=== PATIENT | male | born 1995 | race Caucasian/White ===

== ENCOUNTER 2019-12-15 20:12 | Emergency (ER) | payer MEDICAID, SELFPAY ==
[2019-12-15 20:20] VITALS: BP 157/79; PULSE 88; RESP 16; TEMP 36.6; O2SAT 98; BMI 27.3
--- NOTE | 2019-12-15 20:39 | CTR_ITS ---
PROCEDURE INFORMATION: Exam: CT Abdomen And Pelvis With Contrast Exam date and time: 12/15/2019 8:57 PM Age: 24 years old Clinical indication: Nausea and vomiting; Abdominal pain; Prior surgery; Surgery type: Gb, appy, small intestine, RT side colon; Additional info: Abd pain TECHNIQUE: Imaging protocol: Computed tomography of the abdomen and pelvis with intravenous contrast. Total DLP: 999.35 mGy-cm Radiation optimization: All CT scans at this facility use at least one of these dose optimization techniques: automated exposure control; mA and/or kV adjustment per patient size (includes targeted exams where dose is matched to clinical indication); or iterative reconstruction. Contrast material: OMNI 300; Contrast volume: 95 ml; Contrast route: IV; COMPARISON: CT abdomen pelvis w con* [id number] 03/30/2017 2:37 AM FINDINGS: Liver: Normal. No mass. Gallbladder and bile ducts: Status post cholecystectomy. Pancreas: Normal. No ductal dilation. Spleen: Normal. No splenomegaly. Adrenals: Normal. No mass. Kidneys and ureters: Normal. No hydronephrosis. Stomach and bowel: Status post right colectomy. There are mildly dilated fluid-filled loops of small bowel present in the lower abdomen and pelvis, findings could represent ileus although an early or partial small bowel obstruction cannot be excluded. Additionally, some strandy and hazy opacities are seen in the adjacent mesenteric fat and fascia for the suggesting mild inflammatory changes and possible small bowel enteritis. Appendix: Status post appendectomy. Intraperitoneal space: Unremarkable. No free air. No significant fluid collection. Vasculature: Unremarkable. No abdominal aortic aneurysm. Lymph nodes: Unremarkable. No enlarged lymph nodes. Bladder: Unremarkable as visualized. Reproductive: Unremarkable as visualized. Bones/joints: Unremarkable. No acute fracture. Soft tissues: Unremarkable. CT/CT abdomen pelvis w con* [id number] IMPRESSION: Mildly dilated fluid-filled loops of small bowel are seen predominately within the lower abdomen, there are mild inflammatory changes seen in the adjacent mesentery. These findings may represent inflammatory changes and small bowel enteritis although early small bowel obstruction cannot be excluded. Radiation Dose CTDIVOL = (mGy): DLP = 999.35 (mGy-cm)
--- NOTE | 2019-12-15 20:41 | W.ED.ABDPA2 ---
HPI - Abdominal Pain General: Chief Complaint: Abdominal Pain Stated Complaint: abd pain Time Seen by Provider: 12/15/19 20:33 History of Present Illness: HPI narrative: Patient comes in today with complaints of abdominal pain that started 45 minutes after his meal 3 hours ago. Patient states he has a history of a bowel obstruction in the past. Patient does have a previous ruptured colon. Patient has a history of leukemia in the past. Patient has had a ostomy in the past. Patient appears well. Patient appears in moderate to severe pain. Patient did report some nausea and vomiting with his pain. Associated Symptoms: Reports nausea and vomiting Review of Systems General: Reports: 10 or more systems reviewed and unremarkable except in HPI and below GI: Reports: abdominal pain, nausea and vomiting PFSH ED PFSH: Social History Smoking and tobacco status: never smoked Physical Exam Const: COMMON NORMALS: no apparent distress and oriented x3 GENERAL APPEARANCE: cooperative HENMT: COMMON NORMALS: normocephalic, external ears normal, EAC's normal, TM's normal bilaterally and external nose normal HEAD & SCALP: normal to inspection and normocephalic FACE & SINUS: normal facial exam NOSE: external nose normal GENERAL EAR: hearing not grossly impaired EXTERNAL EAR: Yes external ears normal EXTERNAL AUDITORY CANAL: EAC's normal TYMPANIC MEMBRANE: TM's normal bilaterally MOUTH: oral and palatal mucosa normal THROAT: posterior oropharynx normal Eye: COMMON NORMALS: PERRL and EOMs intact bilaterally PUPIL: Yes PERRL Neck/C-Spine: COMMON NORMALS: full ROM and no lymphadenopathy Lymph: LYMPHATIC: no lymphedema noted Chest: COMMONS NORMALS: inspection of chest normal and palpation of chest normal Resp: COMMON NORMALS: normal respiratory effort and clear to auscultation bilaterally AUSCULTATION: clear to auscultation bilaterally Cardio: COMMON NORMALS: regular rate and regular rhythm RATE: regular rate RHYTHM: regular rhythm GI: INSPECTION: Yes other (multiple surgical scars) AUSCULTATION: Yes hypoactive bowel sounds PALPATION: Yes tender (diffuse) : COMMON NORMALS: Yes no CVA tenderness BLADDER/KIDNEY EXAM: Yes no CVA tenderness Back/Pelvis: COMMON NORMALS: no CVA tenderness and thoracic and lumbar spine normal to inspection Extremity: COMMON NORMALS: normal to inspection GENERAL: No edema Neuro: COMMON NORMALS: oriented x3, moves all extremities and no focal motor deficits Psych: COMMON NORMALS: mental status grossly normal and cooperative Skin: COMMON NORMALS: no rashes or lesions noted GENERAL SKIN EXAM: no rashes or lesions noted Course Vital Signs: Vital signs: Vital Signs Temperature 97.8 F 12/15/19 20:20 Pulse Rate 88 12/15/19 20:20 Respiratory Rate 16 12/15/19 21:17 Blood Pressure 157/79 12/15/19 20:20 Pulse Oximetry 98 12/15/19 21:17 MDM - Abdominal Pain MDM Narrative: Medical decision making narrative: Patient comes in today with complaints of midepigastric pain. Patient reports about 45 minutes after eating he had sudden onset of abdominal discomfort. Patient was worried that he may be developing a small bowel obstruction he has had a previous history of similar illness. Exam notes abdomen soft bowel sounds are decreased. Respirations are even lungs are clear to auscultation. Skin is warm and dry. Patient does report diarrhea. Vital signs are normal. Differential diagnosis includes gastroenteritis, gastritis, enteritis, small bowel obstruction. Laboratory values noted no obvious abnormality. CT scan of the abdomen and pelvis noted some bowel wall thickening of the small bowel that suggested a enteritis. Although cannot be ruled out that this is also a early small bowel obstruction. Patient was medicated with morphine and ondansetron and famotidine in the ER along with 1 L of IV fluids. Patient had resolution of symptoms. Reviewed exam and with patient with recommendations for clear liquid diet for the next 24 hours then increase to full liquid diet. Monitoring for worsening nausea vomiting or high fever and return as needed for the symptoms. Patient reported understanding and agreed with plan. Lab Data: Labs: Lab Results 12/15/19 12/15/19 Range/Units 20:55 20:55 WBC 7.2 (4.0-10.0) 10^3/ uL RBC 5.32 H (4.1-5.3) 10^6/u L Hgb 15.1 (11.7-16.6) g/dL Hct 44.3 (42.0-52.0) % MCV 83.3 (80-94) fL MCH 28.4 (28.0-34.0) pg MCHC 34.1 (30.0-36.0) g/dL RDW 13.1 (12.1-15.1) % Plt Count 205 (130-400) 10^3/c mm MPV 8.8 (7.4-10.4) fL Neut % (Auto) 60.1 % Lymph % (Auto) 30.3 % [place] % (Auto) 7.8 % Eos % (Auto) 1.1 % Baso % (Auto) 0.3 % Neut # (Auto) 4.3 (1.8-7.7) 10^3/u L Lymph # (Auto) 2.2 (0.8-4.8) 10^3/u L [place] # (Auto) 0.6 (0.2-0.9) 10^3/u L Eos # (Auto) 0.1 (0.0-0.8) 10^3/u L Baso # (Auto) 0.0 (0.0-0.1) 10^3/u L Nucleated RBC % (a uto) 0 % Nucleated RBCs # 0.0 /100WBC Sodium 138 (136-145) mmol/L Potassium 4.0 (3.5-5.1) mmol/L Chloride 97 L (98-107) mmol/L Carbon Dioxide 30 H (22-29) mmol/L Anion Gap 15.0 (5-19) BUN 10 (6-20) mg/dL Creatinine 0.9 (0.7-1.2) mg/dL GFR Calculation 103.7 (90-130) mL/min Glucose 106 (65-115) mg/dL Calcium 9.3 (8.5-10.5) mg/dL Total Bilirubin 0.3 (0.15-1.2) mg/dL AST 22 (0-40) U/L ALT 24 (0-41) U/L Alkaline Phosphata se 142 H (40-130) IU/L Total Protein 7.6 (6.6-8.7) g/dL Albumin 4.5 (3.5-5.2) g/dL Globulin 3.1 (1.3-4.6) g/dL Discharge Plan Discharge Patient Disposition: Home, Self-Care Clinical Impression: Enteritis Condition: Stable Prescriptions: New ondansetron HCl 4 mg tablet 4 mg PO Q6H PRN (Reason: nausea and vomiting) Qty: 10 RF: 0 hydrocodone-acetaminophen 5-325 mg tablet 1 tab PO Q6H PRN (Reason: pain) Qty: 6 RF: 0 Discharge Orders: Discharge Order (Routine); Ordered 12/15/19 Ordered By: David Nicholson Referrals: Gayla Sterling MD [Primary Care Provider] - Discharge Diet: Clear Liquid Discharge Activity: Increase activity as tolerated Patient Instructions: Gastroenteritis (ED) Activity Restrictions/Additional Instructions: Drink plenty of fluids Activity as tolerated Clear liquid diet for the next 24 hours, increase to full liquid after 24 hours, then to a bland diet Return to ER for high fever, persistent vomiting, or worsening abdominal pain Follow-up with primary care as needed Coding Level of Care Code ED Hide Stretcher Hand for Chg Fwd Exam Comprehensive
[2019-12-15 21:03] LABS: Basophils % 0.3 %; Eosinophils # 0.1 10^3/uL (0.0-0.8); Eosinophils % 1.1 %; Hematocrit 44.3 % (42.0-52.0); Hemoglobin 15.1 g/dL (11.7-16.6); Lymphocytes # 2.2 10^3/uL (0.8-4.8); Lymphocytes % 30.3 %; Mean Corpuscular HGB Conc 34.1 g/dL (30.0-36.0); Mean Corpuscular Hemoglobin 28.4 pg (28.0-34.0); Mean Corpuscular Volume 83.3 fL (80-94); Mean Platelet Volume 8.8 fL (7.4-10.4); Monocytes # 0.6 10^3/uL (0.2-0.9); Monocytes % 7.8 %; Neutrophils # 4.3 10^3/uL (1.8-7.7); Neutrophils % 60.1 %; Nucleated Red Blood Cells % 0 %; Platelet Count 205 10^3/cmm (130-400); Red Blood Count 5.32 10^6/uL (4.1-5.3); Red Cell Distribution Width 13.1 % (12.1-15.1); White Blood Count 7.2 10^3/uL (4.0-10.0)
[2019-12-15 21:17] VITALS: RESP 16; O2SAT 98
[2019-12-15 21:17] LABS: Alanine Aminotransferase 24 U/L (0-41); Albumin Level 4.5 g/dL (3.5-5.2); Alkaline Phosphatase 142 IU/L (40-130); Aspartate Amino Transferase 22 U/L (0-40); Blood Urea Nitrogen 10 mg/dL (6-20); Calcium 9.3 mg/dL (8.5-10.5); Carbon Dioxide 30 mmol/L (22-29); Chloride 97 mmol/L (98-107); Creatinine Clr Calc Pharmacy 136.0243; Globulin 3.1 g/dL (1.3-4.6); Glomerular Filtration Rate 103.7 mL/min (90-130); Glucose 106 mg/dL (65-115); Sodium 138 mmol/L (136-145); Total Bilirubin 0.3 mg/dL (0.15-1.2); Total Protein 7.6 g/dL (6.6-8.7)
[2019-12-15] MEDS: morphine 4 mg/mL SDV 1 mL IVP (21:17)
[2019-12-15] MEDS: ondansetron 2 mg/ML SDV 2 mL 4 MG IVP (21:17)
[2019-12-15] MEDS: sodium chloride 0.9% 1,000 ML 999 ML IV (21:17)
[2019-12-15] MEDS: iohexol 300 mg/mL 100 mL Btl 95 ML IV (21:34)
[2019-12-15] MEDS: famotidine 20 mg/2 mL INJ 40 MG IVP (22:39)
[2019-12-15 23:01] VITALS: BP 111/75; PULSE 64; RESP 16; TEMP 36.3; O2SAT 98
== END 2019-12-15 23:04 | disposition home or self-care (01) ==
PROVIDERS: Emergency Provider Nurse Practitioner Family; Family Provider Family Medicine; PCP Family Medicine
DX: K52.9 Noninfective gastroenteritis and colitis, unspecified (principal)
CPT/HCPCS: 74177; 80053; 85025; 96361; 96374; 96375; 99282; 99283; J2270; J2405; J3490; J7030; Q9967

== ENCOUNTER 2020-07-08 14:12 | Outpatient (CLI) | payer MEDICAID, SELFPAY ==
--- NOTE | 2020-07-08 14:23 | XRR_ITS ---
PROCEDURE INFORMATION: Exam: XR Left Foot Complete Exam date and time: 07/08/2020 2:23 PM Age: 25 years old Clinical indication: Injury or trauma; Fall; Initial encounter; Blunt trauma; Foot; Left; Injury date: Today; Additional info: Pain after fall TECHNIQUE: Imaging protocol: XR Left foot. Views: 3 or more views. COMPARISON: No relevant prior studies available. FINDINGS: Bones/joints: Negative for acute bony abnormality Soft tissues: Normal. XR/XR foot LT min 3V* [id number] IMPRESSION: No acute findings.
--- NOTE | 2020-07-08 14:23 | XRR_ITS ---
PROCEDURE INFORMATION: Exam: XR Right Hip with Pelvis when Performed Exam date and time: 07/08/2020 2:23 PM Age: 25 years old Clinical indication: Injury or trauma; Fall; Initial encounter; Blunt trauma (contusions or hematomas); Right; Hip; Injury date: Today; Additional info: Pain after fall TECHNIQUE: Imaging protocol: XR Right hip with pelvis when performed. Views: 1 view. COMPARISON: CT abdomen pelvis w con* [id number] 12/15/2019 9:45 PM FINDINGS: Bones/joints: Unremarkable. No acute fracture. Soft tissues: Unremarkable. XR/XR hip RT 2-3V wo/w pel* [id number] IMPRESSION: No acute findings.
== END 2020-07-08 14:13 | disposition home or self-care (01) ==
LOC: RAD 14:14
PROVIDERS: PCP Family Medicine; Visit Provider Nurse Practitioner
DX: M25.551 Pain in right hip (principal); M79.672 Pain in left foot
CPT/HCPCS: 73502; 73630

== ENCOUNTER → 2021-08-04 10:26 | Outpatient (BNVA) | payer OTHER, SELFPAY | PROVIDERS: PCP Family Medicine; Visit Provider Nurse Practitioner | DX: M25.511 Pain in right shoulder (principal) | CPT/HCPCS: 73030 ==

== ENCOUNTER → 2021-09-11 11:05 | Outpatient (BNVA) | payer OTHER, SELFPAY | PROVIDERS: PCP Family Medicine; Visit Provider Nurse Practitioner Family | DX: Z20.822 Contact with and (suspected) exposure to COVID-19 (principal) | CPT/HCPCS: 87426; 87635 ==

== ENCOUNTER → 2022-07-02 18:46 | Outpatient (BNVA) | payer OTHER, SELFPAY | PROVIDERS: PCP Family Medicine; Visit Provider Emergency Medicine | DX: S69.91XA Unspecified injury of right wrist, hand and finger(s), initial encounter (principal); W11.XXXA Fall on and from ladder, initial encounter | CPT/HCPCS: 73110 ==

== ENCOUNTER → 2022-07-18 08:23 | Outpatient (BNVA) | payer OTHER, SELFPAY | PROVIDERS: PCP Family Medicine; Referring Provider Emergency Medicine; Visit Provider Student in an Organized Health Care Education/Training Program | DX: S69.91XA Unspecified injury of right wrist, hand and finger(s), initial encounter (principal); W17.89XA Other fall from one level to another, initial encounter | CPT/HCPCS: 73110 ==

== ENCOUNTER 2025-01-20 11:37 | Outpatient (CLI) | payer BC, SELFPAY ==
[2025-01-20 13:17] LABS: Basophils % 0.5 %; Eosinophils # 0.1 10^3/uL (0.0-0.8); Eosinophils % 1.1 %; Hematocrit 42.7 % (37-53); Lymphocytes # 1.8 10^3/uL (0.8-4.8); Lymphocytes % 24.1 %; Mean Corpuscular HGB Conc 34.4 g/dL (30-55); Mean Corpuscular Hemoglobin 30.3 pg (27-33); Mean Platelet Volume 8.9 fL (7.4-10.4); Monocytes # 0.6 10^3/uL (0.2-0.9); Monocytes % 8.4 %; Neutrophils # 4.92 10^3/uL (1.8-7.7); Neutrophils % 65.2 %; Nucleated Red Blood Cells % 0 %; Platelet Count 231 10^3/cmm (157-399); Red Blood Count 4.85 10^6/uL (3.85-5.65); Red Cell Distribution Width 13.8 % (12.1-15.1); White Blood Count 7.54 10^3/uL (3.29-11.43)
[2025-01-20 13:31] LABS: Lactate (Lactic Acid level) 1.4 mmol/L (0.5-2.2)
[2025-01-20 13:32] LABS: Alanine Aminotransferase 66 U/L (0-41); Albumin Level 4.3 g/dL (3.5-5.2); Alkaline Phosphatase 118 U/L (40-130); Anion Gap 11.9 (5-19); Aspartate Amino Transferase 40 U/L (0-40); Blood Urea Nitrogen 9 mg/dL (6-20); Calcium 9.1 mg/dL (8.5-10.5); Carbon Dioxide 30 mmol/L (22-29); Chloride 102 mmol/L (98-107); Globulin 2.8 g/dL (1.3-4.6); Glomerular Filtration Rate 114.3 mL/min (90-130); Glucose 94 mg/dL (65-115); Osmolality Calculated 288 mOsm/kg (285-295); Potassium 3.9 mmol/L (3.5-5.1); Sodium 140 mmol/L (136-145); Total Bilirubin 0.5 mg/dL (0.15-1.2); Total Protein 7.1 g/dL (6.6-8.7); Uric Acid 4.8 mg/dL (3.4-7.0)
[2025-01-20 14:34] LABS: Reflex Lactate Order REFLEX LACTIC ORDERD
== END 2025-01-20 11:38 | disposition home or self-care (01) ==
PROVIDERS: PCP Family Medicine; Visit Provider Internal Medicine Hematology & Oncology
DX: C92.01 Acute myeloblastic leukemia, in remission (principal)
CPT/HCPCS: 36415; 80053; 83605; 83735; 84550; 85025; 87496